=== PATIENT | male | born 1930 | race Two or more races ===

== ENCOUNTER → 2016-12-28 | Outpatient (CLI) | payer MEDICARE, MEDICAID ==
[~2016-12-28] MED LIST: ASPI-498 PO; ATOR10TA52 PO; BAC09TP TOP; CARV6.2551 PO; DOCU100C8 PO; DONE10TA37 PO; FINA5TAB4 PO; FURO40TA PO; FUROSEMIDE 40 MG/4 ML VIAL IV ONE; FUROSEMIDE 40 MG/4 ML VIAL ONE; GABA-497 PO; GLIP-115 PO; KETO1DRO OP; LOSA50TA6 PO; OXYB15TA12 PO; PANT1INJ3 PO; POTA8TAB2 PO; POTASSIUM CHL 10 Meq TABLET PO ONE; POTASSIUM CHL 20 Meq TABLET PO ONE; TRAM100T37 PO; TRIA0.1C5 EX
[2016-12-28 15:15] VITALS: BP 200/86
[2016-12-28 16:09] VITALS: BP 185/81
== END | disposition home or self-care (01) ==
LOC: CHF HDHVI 15:21
PROVIDERS: ATTEND Internal Medicine Cardiovascular Disease
DX: I11.0 Hypertensive heart disease with heart failure (principal); I50.9 Heart failure, unspecified
CPT/HCPCS: 96374; G0463; J1940

== ENCOUNTER → 2017-01-04 | Outpatient (CLI) | payer MEDICARE, MEDICAID ==
[~2017-01-04] MED LIST changes: -FUROSEMIDE 40 MG/4 ML VIAL IV ONE; -FUROSEMIDE 40 MG/4 ML VIAL ONE; -POTASSIUM CHL 10 Meq TABLET PO ONE; -POTASSIUM CHL 20 Meq TABLET PO ONE
== END | disposition home or self-care (01) ==
LOC: Rad HDHVI 14:31
PROVIDERS: ATTEND Internal Medicine Cardiovascular Disease
DX: I25.5 Ischemic cardiomyopathy (principal); I73.9 Peripheral vascular disease, unspecified
CPT/HCPCS: 93306; 93880; 93926

== ENCOUNTER → 2017-01-11 | Outpatient (CLI) | payer MEDICARE, MEDICAID ==
[~2017-01-11] MED LIST changes: +IOHEXOL 350 MG/ML 100ML IJ ONE
[2017-01-11 11:20] VITALS: BP 140/52
[2017-01-11 13:04] VITALS: BP 183/78
[2017-01-11 13:05] VITALS: BP 202/62
== END | disposition home or self-care (01) ==
LOC: Rad HDHVI 11:23
PROVIDERS: ATTEND Internal Medicine Cardiovascular Disease
DX: I67.82 Cerebral ischemia (principal); G93.89 Other specified disorders of brain; J32.8 Other chronic sinusitis; Z86.73 Personal history of transient ischemic attack (TIA), and cerebral infarction without residual deficits
CPT/HCPCS: 70470; 82565; 96374; G0463; Q9967

== ENCOUNTER → 2017-01-19 | Outpatient (CLI) | payer MEDICARE, MEDICAID ==
[~2017-01-19] VITALS: Ht 157.5 cm; Wt 59.0 kg
[~2017-01-19] MED LIST changes: +ADENOSINE 50 MG in GIVE UN-DILUTED 0 ML IV ONE; +ADENOSINE 90 MG/30 ML INJ IV ONE; -IOHEXOL 350 MG/ML 100ML IJ ONE
== END | disposition home or self-care (01) ==
LOC: Rad HDHVI 09:47
PROVIDERS: ATTEND Internal Medicine Cardiovascular Disease
DX: I11.0 Hypertensive heart disease with heart failure (principal); I50.23 Acute on chronic systolic (congestive) heart failure; I73.9 Peripheral vascular disease, unspecified; E78.5 Hyperlipidemia, unspecified
CPT/HCPCS: 78452; 93005; 96374; 96375; A9500; J0153

== ENCOUNTER → 2017-01-25 | Outpatient (CLI) | payer MEDICARE, MEDICAID ==
[~2017-01-25] MED LIST changes: -ADENOSINE 50 MG in GIVE UN-DILUTED 0 ML IV ONE; -ADENOSINE 90 MG/30 ML INJ IV ONE; +FURO20TA3 PO; +HAL5T PO; +LOSA25TA9 PO; +NAPR-223 PO; +POTA10TA34 PO
[2017-01-25 10:20] VITALS: BP 123/55
[2017-01-25 10:45] VITALS: BP 122/55
[2017-01-25 12:33] LABS: Basophils # (auto) 0 uL; Basophils % (auto) 0.6 % (0.0-2.0); Eosinophils # (auto) 0.5 uL; Eosinophils % (auto) 7.3 % (0.0-7.0); Hematocrit 36.5 % (41.0-53.0); Hemoglobin 11.8 g/dL (13.5-17.5); Mean Corpuscular Hemoglobin 27.1 pg (28.0-32.0); Mean Corpuscular Hgb Conc. 32.4 g/dL (32.0-36.0); Mean Corpuscular Volume 83.7 fL (80.0-100.0); Mean Platelet Volume 8.6 fL (6.9-10.8); Monocytes # (auto) 0.6 uL; Monocytes % (auto) 8.8 % (0.0-12.0); Neutrophils # (auto) 4.9 uL; Neutrophils % (auto) 69.3 % (37.0-80.0); Platelet Count (auto) 182 10^3/uL (140-450); Red Cell Distribution Width 17.1 % (11.8-14.3); White Blood Cell 7.1 10^3/uL (4.4-10.8)
[2017-01-25 12:41] LABS: INR 0.94 (0.9-1.15); Prothrombin Time 10.2 sec (9.37-12.3)
[2017-01-25 13:04] LABS: BUN/Creatinine Ratio 25.6; Calcium 8.6 mg/dL (8.5-10.1); Potassium 4.4 mmol/L (3.5-5.1)
== END | disposition home or self-care (01) ==
LOC: Rad HDHVI 09:59
PROVIDERS: ATTEND Internal Medicine Cardiovascular Disease
DX: Z01.818 Encounter for other preprocedural examination (principal); I70.0 Atherosclerosis of aorta; I10 Essential (primary) hypertension; D64.9 Anemia, unspecified; R79.1 Abnormal coagulation profile
CPT/HCPCS: 36415; 71020; 80048; 85025; 85610; 85730; 93005; G0463

== ENCOUNTER 2017-01-31 10:06 | Day surgery (SDC) | payer MEDICARE, MEDICAID ==
[~2017-01-31 10:06] MED LIST changes: -ATOR10TA52 PO; -BAC09TP TOP; -FURO40TA PO; -LOSA50TA6 PO; -OXYB15TA12 PO; -PANT1INJ3 PO; -POTA8TAB2 PO; -TRAM100T37 PO
[2017-01-31] MEDS ORDERED: IOHEXOL 350 MG/ML 100ML IJ ONE (12:47)
[2017-01-31] MEDS ORDERED: LIDOCAINE 2%HCL (LOCAL ANESTH.) INJ 20ML MDV ONE (12:47)
[2017-01-31] MEDS ORDERED: methylPREDNISolone SOD SUCC 125 MG/2 ML VL ONE (13:00)
[2017-01-31] MEDS ORDERED: ANGIOMAX 250 MG VIAL IV ONE (13:00)
[2017-01-31] MEDS ORDERED: diphenhdrAMINE HCL 50 MG/1 ML VL ONE (13:01)
[2017-01-31] MEDS ORDERED: SODIUM CHL 0.9% 50 ML ONE (13:01)
[2017-01-31] MEDS ORDERED: MIDAZOLAM HCL 1MG/1ML-2 ML VIAL ONE (13:01)
[2017-01-31] MEDS ORDERED: fentaNYL CITRATE 100 MCG/2 ML VL ONE (13:01)
[2017-01-31] MEDS ORDERED: cloNIDine HCL 0.1 MG TAB ONE (16:04)
[2017-01-31] MEDS ORDERED: cloNIDine HCL 0.1 MG TAB PO ONE (16:15)
== END 2017-01-31 17:50 | disposition home or self-care (01) ==
LOC: CATH 10:06
PROVIDERS: ATTEND Internal Medicine Cardiovascular Disease
DX: I73.9 Peripheral vascular disease, unspecified (principal); I10 Essential (primary) hypertension; E78.5 Hyperlipidemia, unspecified; Z88.0 Allergy status to penicillin; Z91.040 Latex allergy status; Z91.013 Allergy to seafood; K21.9 Gastro-esophageal reflux disease without esophagitis; E11.9 Type 2 diabetes mellitus without complications; I50.9 Heart failure, unspecified; N40.0 Benign prostatic hyperplasia without lower urinary tract symptoms; G30.9 Alzheimer's disease, unspecified
CPT/HCPCS: 36247; C1760; C1769; C1887; C1894; J0583; J1200; J1644; J2250; J2930; J3010; J7030; Q9967; 99152

== ENCOUNTER 2017-02-03 11:49 | Emergency (ER) | payer MEDICARE, MEDICAID ==
[~2017-02-03] VITALS: Ht 157.5 cm; Wt 59.0 kg
[2017-02-03 12:21] VITALS: BP 140/65
[2017-02-03 12:28] LABS: Basophils # (auto) 0 uL; Basophils % (auto) 0.7 % (0.0-2.0); Eosinophils # (auto) 0.6 uL; Eosinophils % (auto) 8.7 % (0.0-7.0); Hematocrit 34.8 % (41.0-53.0); Hemoglobin 11.3 g/dL (13.5-17.5); Lymphocytes # (auto) 0.7 uL; Lymphocytes % (auto) 9.8 % (10.0-50.0); Mean Corpuscular Hemoglobin 27.1 pg (28.0-32.0); Mean Corpuscular Hgb Conc. 32.6 g/dL (32.0-36.0); Mean Corpuscular Volume 83.3 fL (80.0-100.0); Mean Platelet Volume 7.7 fL (6.9-10.8); Monocytes % (auto) 13.5 % (0.0-12.0); Neutrophils # (auto) 4.9 uL; Neutrophils % (auto) 67.3 % (37.0-80.0); Platelet Count (auto) 194 10^3/uL (140-450); Red Cell Distribution Width 16.5 % (11.8-14.3); White Blood Cell 7.3 10^3/uL (4.4-10.8)
[2017-02-03 12:41] LABS: INR 0.96 (0.9-1.15); Partial Thromboplastin Time 23.6 sec (22.64-33.71); Prothrombin Time 10.5 sec (9.37-12.3)
[2017-02-03] MEDS ORDERED: ASPirin 81 mg TAB PO ONE (12:45)
[2017-02-03 13:00] LABS: Albumin 3.4 g/dL (3.4-5.0); BUN/Creatinine Ratio 17.7; Bilirubin, Total 0.3 mg/dL (0.2-1.0); Calcium 8.3 mg/dL (8.5-10.1); Magnesium 2.1 mg/dL (1.6-2.6); Potassium 4.4 mmol/L (3.5-5.1); Total Protein 7.4 g/dL (6.4-8.2)
[2017-02-03 13:16] LABS: B-Type Natriuretic Peptide 275.23 pg/mL (0-100)
[2017-02-03 13:53] LABS: Temperature: 23.1 C (20.0-25.0)
== END 2017-02-03 15:16 | disposition home or self-care (01) ==
LOC: ER 11:49 → EDBD 11:49 → ER 15:16
DX: G45.9 Transient cerebral ischemic attack, unspecified (principal); G93.41 Metabolic encephalopathy; E11.9 Type 2 diabetes mellitus without complications; I11.0 Hypertensive heart disease with heart failure; I50.9 Heart failure, unspecified
CPT/HCPCS: 36415; 70450; 71010; 80053; 83735; 83880; 84484; 85025; 85610; 85730; 93005; 99291

== ENCOUNTER → 2017-02-20 | Outpatient (CLI) | payer MEDICARE, MEDICAID ==
[~2017-02-20] MED LIST changes: +TRIA0.1C4 EX; -TRIA0.1C5 EX
[2017-02-20 14:05] VITALS: BP 140/48
[2017-02-20 14:35] VITALS: BP 120/72
[2017-02-20 16:22] LABS: Basophils # (auto) 0.1 uL; Eosinophils # (auto) 0.6 uL; Eosinophils % (auto) 10.3 % (0.0-7.0); Hematocrit 34.8 % (41.0-53.0); Hemoglobin 11.6 g/dL (13.5-17.5); Lymphocytes % (auto) 17.6 % (10.0-50.0); Mean Corpuscular Hemoglobin 27.9 pg (28.0-32.0); Mean Corpuscular Hgb Conc. 33.2 g/dL (32.0-36.0); Mean Platelet Volume 8.3 fL (6.9-10.8); Monocytes # (auto) 0.6 uL; Monocytes % (auto) 11.2 % (0.0-12.0); Neutrophils # (auto) 3.4 uL; Neutrophils % (auto) 59.9 % (37.0-80.0); Nucleated Red Blood Cells % 0.2 %; Platelet Count (auto) 199 10^3/uL (140-450); Red Cell Distribution Width 15.6 % (11.8-14.3); White Blood Cell 5.7 10^3/uL (4.4-10.8)
[2017-02-20 16:23] LABS: BUN/Creatinine Ratio 19.1; Calcium 8.6 mg/dL (8.5-10.1); Potassium 4.6 mmol/L (3.5-5.1)
[2017-02-20 16:37] LABS: INR 0.96 (0.9-1.15); Prothrombin Time 10.5 sec (9.37-12.3)
== END | disposition home or self-care (01) ==
LOC: Rad HDHVI 13:53
PROVIDERS: ATTEND Internal Medicine Cardiovascular Disease
DX: Z01.818 Encounter for other preprocedural examination (principal); I70.0 Atherosclerosis of aorta; I51.7 Cardiomegaly; I10 Essential (primary) hypertension; R91.8 Other nonspecific abnormal finding of lung field; D64.9 Anemia, unspecified; R79.1 Abnormal coagulation profile; E78.00 Pure hypercholesterolemia, unspecified; G45.9 Transient cerebral ischemic attack, unspecified
CPT/HCPCS: 36415; 80048; 85025; 85610; 85730; 93005; G0463; 71020

== ENCOUNTER 2017-03-05 04:33 | Emergency (ER) | payer MEDICARE, MEDICAID ==
[~2017-03-05] VITALS: Ht 157.5 cm; Wt 57.6 kg
[~2017-03-05 04:33] MED LIST changes: -DONE10TA37 PO; +DONE10TA40 PO; -FURO20TA3 PO; -GABA-497 PO; -HAL5T PO; -POTA10TA34 PO
[2017-03-05 08:02] VITALS: BP 187/78
== END 2017-03-05 09:49 | disposition home or self-care (01) ==
LOC: ER 04:39
DX: S01.01XA Laceration without foreign body of scalp, initial encounter (principal); S09.90XA Unspecified injury of head, initial encounter; E11.9 Type 2 diabetes mellitus without complications; F02.80 Dementia in other diseases classified elsewhere, unspecified severity, without behavioral disturbance, psychotic disturbance, mood disturbance, and anxiety; G30.9 Alzheimer's disease, unspecified; I10 Essential (primary) hypertension; Z88.1 Allergy status to other antibiotic agents; Z91.040 Latex allergy status; W22.8XXA Striking against or struck by other objects, initial encounter; Y93.89 Activity, other specified; Y92.009 Unspecified place in unspecified non-institutional (private) residence as the place of occurrence of the external cause; Y99.8 Other external cause status
CPT/HCPCS: 70450

== ENCOUNTER → 2017-03-14 | Outpatient (CLI) | payer MEDICARE, MEDICAID | END | disposition home or self-care (01) | LOC: Rad HDHVI 09:58 | PROVIDERS: ATTEND Internal Medicine Cardiovascular Disease | DX: I73.9 Peripheral vascular disease, unspecified (principal) | CPT/HCPCS: 93926 ==

== ENCOUNTER → 2017-06-16 | Outpatient (CLI) | payer MEDICARE, MEDICAID ==
[~2017-06-16] MED LIST changes: +FUROSEMIDE 40 MG/4 ML VIAL IV ONE; +FUROSEMIDE 40 MG/4 ML VIAL ONE; +READI-CAT 2 (BARIUM SULF)(VANILLA SMOOTHIE) 450ML ONE; +SODIUM CHLORIDE 0.9% 1,000 ML IV SCH
[2017-06-16 10:25] VITALS: BP 150/72
[2017-06-16 11:18] LABS: Hemoglobin 9.4 g/dL (13.5-17.5)
[2017-06-16 11:20] LABS: Hematocrit 29.6 % (41.0-53.0); Mean Corpuscular Hemoglobin 26.2 pg (28.0-32.0); Mean Corpuscular Hgb Conc. 31.6 g/dL (32.0-36.0); Platelet Count (auto) 387 10^3/uL (140-450); Red Blood Cells 3.56 10^6/uL (4.5-5.90); Red Cell Distribution Width 16.7 % (11.8-14.3); White Blood Cell 12.7 10^3/uL (4.4-10.8)
[2017-06-16 11:26] LABS: BUN/Creatinine Ratio 17.7; Calcium 8.4 mg/dL (8.5-10.1); Potassium 4.6 mmol/L (3.5-5.1)
[2017-06-16 11:29] LABS: Basophils % (manual) 0 (0.0-2.0); Blast Cells 0; Eosinophils % (manual) 0 (0-7); Metamyelocytes % 0; Myelocytes % 0; Promyelocytes % 0; Reactive Lymphocytes 0
[2017-06-16 12:01] LABS: Band Neutrophils % (manual) 3; Lymphocytes % (manual) 6 (10.0-50.0); Monocytes % (manual) 6 (0-12)
[2017-06-16 14:22] VITALS: BP 174/80
== END | disposition home or self-care (01) ==
LOC: CHF HDHVI 10:04
PROVIDERS: ATTEND Internal Medicine Cardiovascular Disease
DX: I11.0 Hypertensive heart disease with heart failure (principal); I50.9 Heart failure, unspecified; K57.30 Diverticulosis of large intestine without perforation or abscess without bleeding; J90 Pleural effusion, not elsewhere classified; K40.90 Unilateral inguinal hernia, without obstruction or gangrene, not specified as recurrent; J98.11 Atelectasis; K82.0 Obstruction of gallbladder; I70.0 Atherosclerosis of aorta; R14.0 Abdominal distension (gaseous); R33.9 Retention of urine, unspecified; R60.9 Edema, unspecified; I25.10 Atherosclerotic heart disease of native coronary artery without angina pectoris; I48.91 Unspecified atrial fibrillation; F03.90 Unspecified dementia, unspecified severity, without behavioral disturbance, psychotic disturbance, mood disturbance, and anxiety; Z85.038 Personal history of other malignant neoplasm of large intestine; Z79.899 Other long term (current) drug therapy; Z89.422 Acquired absence of other left toe(s); Z87.01 Personal history of pneumonia (recurrent)
CPT/HCPCS: 36415; 74176; 80048; 82565; 82962; 85007; 85027; 96361; 96374; G0463; J1940; 96360; 96375

== ENCOUNTER 2017-07-17 14:00 | Emergency (ER) | payer MEDICARE, MEDICAID ==
[~2017-07-17 14:00] MED LIST changes: -FUROSEMIDE 40 MG/4 ML VIAL IV ONE; -FUROSEMIDE 40 MG/4 ML VIAL ONE; -READI-CAT 2 (BARIUM SULF)(VANILLA SMOOTHIE) 450ML ONE; -SODIUM CHLORIDE 0.9% 1,000 ML IV SCH
[2017-07-17 14:57] LABS: Basophils # (auto) 0.1 uL; Basophils % (auto) 1.1 % (0.0-2.0); Eosinophils # (auto) 0.6 uL; Eosinophils % (auto) 9.8 % (0.0-7.0); Hematocrit 35.3 % (41.0-53.0); Hemoglobin 11.3 g/dL (13.5-17.5); Lymphocytes # (auto) 1.5 uL; Lymphocytes % (auto) 26.3 % (10.0-50.0); Mean Corpuscular Hemoglobin 25.1 pg (28.0-32.0); Mean Corpuscular Volume 78.5 fL (80.0-100.0); Monocytes # (auto) 0.8 uL; Monocytes % (auto) 14.3 % (0.0-12.0); Neutrophils # (auto) 2.8 uL; Neutrophils % (auto) 48.5 % (37.0-80.0); Nucleated Red Blood Cells % 0.3 %; Platelet Count (auto) 211 10^3/uL (140-450); Red Cell Distribution Width 18.2 % (11.8-14.3); White Blood Cell 5.9 10^3/uL (4.4-10.8)
[2017-07-17 15:02] LABS: BUN/Creatinine Ratio 20.6; Calcium 8.3 mg/dL (8.5-10.1); Magnesium 2.2 mg/dL (1.6-2.6); Potassium 4.7 mmol/L (3.5-5.1)
[2017-07-17 15:05] LABS: Bilirubin, Total 0.4 mg/dL (0.2-1.0); Total Protein 7.5 g/dL (6.4-8.2)
[2017-07-17 15:09] VITALS: BP 133/97
== END 2017-07-17 16:55 | disposition home or self-care (01) ==
LOC: EDBD 14:00 → ER 14:00
DX: F03.90 Unspecified dementia, unspecified severity, without behavioral disturbance, psychotic disturbance, mood disturbance, and anxiety (principal); E11.9 Type 2 diabetes mellitus without complications; I10 Essential (primary) hypertension; I50.9 Heart failure, unspecified; Z88.1 Allergy status to other antibiotic agents; Z91.040 Latex allergy status; Z91.013 Allergy to seafood
CPT/HCPCS: 36415; 70450; 71045; 80053; 83735; 84484; 85025; 93005; 94761

== ENCOUNTER → 2018-03-20 | Outpatient (CLI) | payer MEDICARE, MEDICAID ==
[~2018-03-20] MED LIST changes: +CLOP75TA41 PO; +LOSA25TA40 PO; -LOSA25TA9 PO; +PANT40TA2 PO
== END | disposition home or self-care (01) ==
LOC: Rad HDHVI 09:56
PROVIDERS: ATTEND Internal Medicine Cardiovascular Disease
DX: I70.8 Atherosclerosis of other arteries (principal); I11.9 Hypertensive heart disease without heart failure; F09 Unspecified mental disorder due to known physiological condition; I73.9 Peripheral vascular disease, unspecified; R00.2 Palpitations
CPT/HCPCS: 93306; 93926

== ENCOUNTER → 2018-08-06 | Outpatient (CLI) | payer MEDICARE, MEDICAID ==
[~2018-08-06] MED LIST changes: +GABA250S2 PO; -GLIP-115 PO; +LEVO500T21 PO; +LOSA25TA38 PO; -LOSA25TA40 PO; +MEMA5TAB2 PO; +METF-371 PO; +OSEL75CA11 PO
[2018-08-06 15:52] LABS: Urine Blood Negative /uL (Negative); Urine Specific Gravity 1.013 (1.001-1.035)
[2018-08-06 15:59] LABS: Eosinophils # (auto) 0.6 uL; Hematocrit 30.5 % (41.0-53.0); Lymphocytes # (auto) 1.1 uL; Lymphocytes % (auto) 18.2 % (10.0-50.0); Nucleated Red Blood Cells % 0.1 %; Platelet Count (auto) 208 10^3/uL (140-450); White Blood Cell 5.8 10^3/uL (4.4-10.8)
[2018-08-06 16:02] LABS: Basophils # (auto) 0 uL; Basophils % (auto) 0.8 % (0.0-2.0); Eosinophils % (auto) 10.6 % (0.0-7.0); Hemoglobin 9.6 g/dL (13.5-17.5); Mean Corpuscular Hemoglobin 25.3 pg (28.0-32.0); Mean Corpuscular Hgb Conc. 31.5 g/dL (32.0-36.0); Mean Corpuscular Volume 80.2 fL (80.0-100.0); Monocytes # (auto) 0.7 uL; Monocytes % (auto) 12.2 % (0.0-12.0); Neutrophils # (auto) 3.4 uL; Neutrophils % (auto) 58.2 % (37.0-80.0); Red Blood Cells 3.81 10^6/uL (4.5-5.90); Red Cell Distribution Width 16.4 % (11.8-14.3)
[2018-08-06 16:04] LABS: Albumin 3.7 g/dL (3.4-5.0); Calcium 8.5 mg/dL (8.5-10.1); Potassium 4.6 mmol/L (3.5-5.1)
[2018-08-06 16:09] LABS: Bilirubin, Total 0.4 mg/dL (0.2-1.0); Total Protein 7.6 g/dL (6.4-8.2)
[2018-08-06 16:16] LABS: Free T4 (Free Thyroxine) 0.96 ng/dL (0.89-1.76); Prostate Specific Antigen 0.16 ng/mL (0.0-4.0)
== END | disposition home or self-care (01) ==
LOC: LAB 11:08
PROVIDERS: ATTEND Internal Medicine Cardiovascular Disease
DX: E11.65 Type 2 diabetes mellitus with hyperglycemia (principal); E03.9 Hypothyroidism, unspecified; E55.9 Vitamin D deficiency, unspecified; E29.1 Testicular hypofunction; C61 Malignant neoplasm of prostate; D51.9 Vitamin B12 deficiency anemia, unspecified; N39.0 Urinary tract infection, site not specified
CPT/HCPCS: 36415; 80053; 80061; 81003; 82306; 82607; 83036; 84153; 84403; 84439; 84443; 85025

== ENCOUNTER → 2018-11-12 | Outpatient (CLI) | payer MEDICARE, MEDICAID ==
[~2018-11-12] MED LIST changes: -DOCU100C8 PO; -LEVO500T21 PO; -LOSA25TA38 PO; -MEMA5TAB2 PO; -METF-371 PO; -OSEL75CA11 PO
== END | disposition home or self-care (01) ==
LOC: Rad HDHVI 10:57
PROVIDERS: ATTEND Internal Medicine Cardiovascular Disease
DX: I70.203 Unspecified atherosclerosis of native arteries of extremities, bilateral legs (principal); R22.40 Localized swelling, mass and lump, unspecified lower limb; R22.9 Localized swelling, mass and lump, unspecified; I11.0 Hypertensive heart disease with heart failure; I50.9 Heart failure, unspecified
CPT/HCPCS: 93926

== ENCOUNTER 2019-01-14 14:21 | Inpatient (IN) | payer MEDICARE, MEDICAID ==
[~2019-01-14] VITALS: Ht 167.6 cm; Wt 58.5 kg
[2019-01-14 16:05] LABS: Urine Bacteria NONE SEEN /hpf (None Seen); Urine Blood Negative /uL (Negative); Urine Hyaline Cast FEW /lpf (0 - 2); Urine Specific Gravity 1.014 (1.001-1.035); Urine WBC 3 /hpf (0 - 3)
[2019-01-14 16:14] LABS: Basophils # (auto) 0.1 uL; Basophils % (auto) 0.9 % (0.0-2.0); Eosinophils # (auto) 0.3 uL; Hematocrit 31.7 % (41.0-53.0); Monocytes # (auto) 0.6 uL; Neutrophils # (auto) 4.7 uL; Neutrophils % (auto) 70.6 % (37.0-80.0)
[2019-01-14 16:16] LABS: Eosinophils % (auto) 4.3 % (0.0-7.0); Hemoglobin 10.1 g/dL (13.5-17.5); Lymphocytes % (auto) 15.5 % (10.0-50.0); Mean Corpuscular Hemoglobin 25.5 pg (28.0-32.0); Mean Corpuscular Hgb Conc. 31.8 g/dL (32.0-36.0); Mean Corpuscular Volume 80.1 fL (80.0-100.0); Monocytes % (auto) 8.7 % (0.0-12.0); Nucleated Red Blood Cells % 0.2 %; Platelet Count (auto) 172 10^3/uL (140-450); Red Blood Cells 3.96 10^6/uL (4.5-5.90); Red Cell Distribution Width 18.8 % (11.8-14.3); White Blood Cell 6.6 10^3/uL (4.4-10.8)
[2019-01-14 16:29] LABS: Albumin 3.5 g/dL (3.4-5.0); Calcium 8.5 mg/dL (8.5-10.1)
[2019-01-14 16:35] LABS: Bilirubin, Total 0.3 mg/dL (0.2-1.0); Total Protein 7.4 g/dL (6.4-8.2)
[2019-01-14] MEDS ORDERED: SODIUM CHLORIDE 0.9% 1,000 ML IV ONE (16:45)
[2019-01-14] MEDS ORDERED: LORazepam 2MG/ML-1ML VIAL ONE (17:10)
[2019-01-14] MEDS ORDERED: LORazepam 2MG/ML-1ML VIAL IV ONE (17:30)
[2019-01-14] MEDS ORDERED: MORPHINE SULF INJ 2 MG/ML SYRINGE 1ML IV PRN (19:15)
[2019-01-14] MEDS ORDERED: NITROGLYCERIN 0.4 MG SL TAB SL PRN (19:15)
[2019-01-14] MEDS ORDERED: DEXTROSE (50%) 50ML SYRG IV PRN (19:15)
[2019-01-14] MEDS: SODIUM CHLORIDE 0.9% 1,000 ML IV SCH (19:33)
[2019-01-14 20:00] VITALS: BP 185/95
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
--- NOTE | 2019-01-14 21:01 | NUR ---
PATIENT HAD AN UNWITNESSED FALL IN THE ROOM OF 277B. I WAS ALERTED HEN THE BED ALARM WENT OFF INITIALLY BUT BEFORE I COULD EVEN GET TO THE ROOM I WAS TOLD BY SALES PROMOTION REPRESENTATIVE THAT THE PATIENT HAD FALLEN. I WENT INTO THE ROOM ALONG WITH SOME OTHER NURSES TO HELP HIM OFF THE FLOOR. HE WAS ABLE TO STAND TO HIS FEET AND GET BACK INTO THE BED. UPON ASSESSING HIM I FOUND HE WAS BLEEDING THROUGH HIS PANTS. PICTURES WERE TAKEN AND DRESSING PLACED OVER IT.
[2019-01-14 21:15] VITALS: BP 173/90
--- NOTE | 2019-01-14 21:30 | NUR ---
CALLED HOSPITALIST AND NOTIFIED HIM THAT PATIENT HAD FALLEN. HE ORDERED TO JUST MONITOR HIM.
[2019-01-14] MEDS: DONEPEZIL HYDROCHLORIDE 5 MG TAB PO SCH (21:51)
[2019-01-14] MEDS: ACCU-CHEK COMFORT CURVE STRIP VI SCH (21:51)
[2019-01-14] MEDS: InsuLIN REG 1unit/0.01ml Soln (100units/ml) SC SCH (21:51)
[2019-01-14 22:00] VITALS: BP 173/90
--- NOTE | 2019-01-15 01:50 | NUR ---
PATIENT PULLED OUT IV.
[2019-01-15 05:00] VITALS: BP 164/79
[2019-01-15] MEDS: ACCU-CHEK COMFORT CURVE STRIP VI SCH ×4 (06:51→22:21)
[2019-01-15] MEDS: InsuLIN REG 1unit/0.01ml Soln (100units/ml) SC SCH ×4 (06:51→22:00)
--- NOTE | 2019-01-15 07:15 | NUR ---
Opening Shift Note Assumed care of patient, awake and alert only to self. No S/S of distress/SOB, no pain noted or reported. Updated on POC and instructed to call for assistance as needed, patient is confused unable to comprehend and needs more reinforcement. Bed locked in lowest position, side rails up x2, call light within reach, bed alarm on. Sitter at bedside for safety. Will continue to monitor for changes Q1hr and PRN.
[2019-01-15] MEDS: SODIUM CHLORIDE 0.9% 1,000 ML IV SCH ×3 (08:45→22:13)
[2019-01-15] MEDS ORDERED: LORazepam 0.5 MG TAB PO ONE (09:00)
[2019-01-15 09:01] VITALS: BP 166/84
[2019-01-15] MEDS: CLOPIDOGREL BISULFATE 75 MG TAB PO SCH (09:23)
[2019-01-15] MEDS: FAMOTIDINE 20 MG TAB PO SCH (09:24)
[2019-01-15] MEDS: FINASTERIDE 5 MG TAB PO SCH (09:24)
[2019-01-15] MEDS: ASPirin-EC 81 mg tab PO SCH (09:24)
--- NOTE | 2019-01-15 11:00 | NUR ---
DAUGHTER AT BEDSIDE STATES PATIENTS PRIMARY CARE IS DR. GARCIA. WILL UPDATE IN THE COMPUTER.
[2019-01-15] MEDS ORDERED: LORA-622 PO (11:07)
[2019-01-15] MEDS ORDERED: MEMA1TAB2 PO (11:07)
[2019-01-15] MEDS ORDERED: FURO40TA4 PO (11:07)
[2019-01-15] MEDS ORDERED: GLIP5TAB12 PO (11:07)
[2019-01-15] MEDS ORDERED: MIRT1TAB38 PO (11:07)
[2019-01-15] MEDS ORDERED: POTA-220 PO (11:07)
[2019-01-15] MEDS ORDERED: ATOR10TA PO (11:07)
[2019-01-15 13:00] VITALS: BP 151/77
--- NOTE | 2019-01-15 16:53 | NUR ---
Spoke with Dr Alcala Patient is becoming increasingly more anxious and trying to get out of bed, received orders for haldol PRN. Will input and follow through.
[2019-01-15 17:00] VITALS: BP 181/87
[2019-01-15] MEDS: HALOPERIDOL LACTATE 5 MG/ML INJ VIAL IM PRN (17:34)
--- NOTE | 2019-01-15 18:49 | NUR ---
Patient Rounds Patient resting in bed watching television with sitter at bedside, no s/s of distress or SOB. Will endorse care to django developer RN.
[2019-01-15 22:00] VITALS: BP 186/96
[2019-01-15] MEDS: DONEPEZIL HYDROCHLORIDE 5 MG TAB PO SCH (22:12)
[2019-01-15] MEDS: LABETALOL HCL 5 MG/ML ML 20ML VIAL IV PRN (22:13)
[2019-01-15 23:20] VITALS: BP 173/86
--- NOTE | 2019-01-15 23:37 | NUR ---
Called/paged Dr. GARCIA called re:notify blood pressure 173/86 after labetalol administration, request to continue home bp medications and request sleeping pill . Waiting for call back. Continue care.
[2019-01-16] MEDS: LABETALOL HCL 5 MG/ML ML 20ML VIAL IV PRN ×2 (01:43→10:01)
[2019-01-16] MEDS: HALOPERIDOL LACTATE 5 MG/ML INJ VIAL IM PRN ×2 (03:20→11:27)
[2019-01-16 05:00] VITALS: BP 143/97
[2019-01-16] MEDS: ACCU-CHEK COMFORT CURVE STRIP VI SCH ×4 (06:46→22:15)
[2019-01-16] MEDS: InsuLIN REG 1unit/0.01ml Soln (100units/ml) SC SCH ×4 (06:47→22:00)
[2019-01-16 09:00] VITALS: BP 156/70
[2019-01-16] MEDS: ASPirin-EC 81 mg tab PO SCH (09:44)
[2019-01-16] MEDS: FINASTERIDE 5 MG TAB PO SCH (09:44)
[2019-01-16] MEDS: FAMOTIDINE 20 MG TAB PO SCH (09:45)
[2019-01-16] MEDS: CLOPIDOGREL BISULFATE 75 MG TAB PO SCH (09:45)
--- NOTE | 2019-01-16 11:00 | NUR ---
WOUND CARE NOTE: IN TO SEE PATIENT AT THIS TIME PER WOUND CARE CONSULT REQUEST. PATIENT ADMITT[facility] TO [facility] WITH DIAGNOSIS OF GENERAL WEAKNESS, HYPOVOLEMIC HYPOTENSION. CURRENT KRISTEL SCORE IS 17. PATIENT HAS SITTER AT BEDSIDE D/T PATIENT CONFUSION. PATIENT RECENTLY FELL, RENDERING HIM WITH SKIN TEARS TO THE RIGHT KNEE AND LEFT ELBOW. BOTH WOUNDS ARE PARTIAL THICKNESS. WOUNDS DRESSED WITH THERAHONEY, OPTIFOAM GENTLE DRESSINGS.NO OTHER WOUNDS NOTED. RECOMMEND: FREQUENT TURN SCHEDULE Q 2 HOURS, PRN CONDITION PERMITS, WITH PRESSURE REDISTRIBUTION USING PILLOWS/WEDGES, BID/PRN APPLICATION WITH MOISTURE BARRIER CREAM, OPTIFOAM GENTLE SACRAL DRESSING PREVENTATIVE, EOD/PRN APPLICATION WITH HONEY, OPTIFOAM GENTLE DRESSINGS TO RIGHT KNEE AND RIGHT ELBOW WOUNDS, SKIN/WOUND CARE PLAN, DIETARY CONSULT, CONTINUED MONITORING BY WOUND CARE TEAM. Addendum: 01/16/19 at 1951 by Maryse Collins RN Amended: Links added.
[2019-01-16] MEDS: SODIUM CHLORIDE 0.9% 1,000 ML IV SCH ×2 (11:24→21:15)
--- NOTE | 2019-01-16 12:59 | NUR ---
WOUND CARE TO PT RIGHT KNEE DONE BY WOUND CARE NURSE.
[2019-01-16 13:00] VITALS: BP 147/78
[2019-01-16 15:22] LABS: Albumin 3.4 g/dL (3.4-5.0); Calcium 8.3 mg/dL (8.5-10.1); Potassium 3.9 mmol/L (3.5-5.1)
[2019-01-16 15:25] LABS: Bilirubin, Total 0.4 mg/dL (0.2-1.0); Total Protein 7.4 g/dL (6.4-8.2)
[2019-01-16 16:18] LABS: Basophils # (auto) 0.1 uL; Basophils % (auto) 0.8 % (0.0-2.0); Eosinophils # (auto) 0.2 uL; Eosinophils % (auto) 2.3 % (0.0-7.0); Hematocrit 32.1 % (41.0-53.0); Hemoglobin 10.1 g/dL (13.5-17.5); Lymphocytes # (auto) 0.9 uL; Lymphocytes % (auto) 11.8 % (10.0-50.0); Mean Corpuscular Hemoglobin 24.9 pg (28.0-32.0); Mean Corpuscular Hgb Conc. 31.4 g/dL (32.0-36.0); Mean Corpuscular Volume 79.3 fL (80.0-100.0); Monocytes # (auto) 0.9 uL; Monocytes % (auto) 11.3 % (0.0-12.0); Neutrophils # (auto) 5.7 uL; Neutrophils % (auto) 73.8 % (37.0-80.0); Platelet Count (auto) 160 10^3/uL (140-450); Red Blood Cells 4.05 10^6/uL (4.5-5.90); Red Cell Distribution Width 18.4 % (11.8-14.3); White Blood Cell 7.7 10^3/uL (4.4-10.8)
[2019-01-16 17:00] VITALS: BP 153/78
--- NOTE | 2019-01-16 17:28 | NUR ---
PT GOT HIS FECES AND SMEARED IT ALL OVER HIS HANDS AND HIS BED/BEDDING AND TRY TO THROW IT. PT ALSO TRIED TO SPIT ON ME. THE HAND MITTS WERE PLACED ON THE PT TO AVOID HIM FROM GETTING HIS FECES AND THROWING IT.
--- NOTE | 2019-01-16 17:41 | NUR ---
PT HAD LARGE BROWN BM AND THREW A PORTION OF IT ACROSS BED. PT CLEANED, BEDDING CHANGED. SITTER AT BEDSIDE, WILL CONTINUE TO MONITOR. Addendum: 01/16/19 at 1900 by SARKIS GUTIERREZ RN MITTENS PLACED ON PATIENT.
--- NOTE | 2019-01-16 18:12 | NUR ---
PT IV INFILTRATED. IV DC'D AND PRESSURE DRESSING APPLIED. NEW IV ATTEMPTED TWICE USING STERILE TECHNIQUE, UNSUCCESSFUL. PT SLEPT DURING PROCEDURE. DHARA WILLOUGHBY PLACED 22 GAUGE RFA.
--- NOTE | 2019-01-16 19:30 | NUR ---
Opening Shift Note Assumed care of patient, awake and confused. No S/S of distress/SOB or pain. Patient only speaks Romansh. Sitter at bedside. Will continue to monitor for changes Q1hr and PRN.
[2019-01-16 22:00] VITALS: BP 176/84
[2019-01-16] MEDS: DONEPEZIL HYDROCHLORIDE 5 MG TAB PO SCH (22:16)
[2019-01-17 05:00] VITALS: BP 127/59
[2019-01-17] MEDS: InsuLIN REG 1unit/0.01ml Soln (100units/ml) SC SCH ×4 (06:20→22:00)
[2019-01-17] MEDS: ACCU-CHEK COMFORT CURVE STRIP VI SCH ×4 (06:20→22:00)
--- NOTE | 2019-01-17 07:30 | NUR ---
tOpening Shift Note Assumed care of patient, awake and alert with confusion. No S/S of distress/SOB or pain. Skin is warm and dry to touch, no s/s of hyperglycemia or hypoglycemia noted. Provide a sitter at bedside, no any injuries noted. Instructed on POC and to call for assist PRN, will continue to monitor for changes Q1hr and PRN.
[2019-01-17 09:00] VITALS: BP 142/60
[2019-01-17] MEDS: ASPirin-EC 81 mg tab PO SCH (09:03)
[2019-01-17] MEDS: CLOPIDOGREL BISULFATE 75 MG TAB PO SCH (09:03)
[2019-01-17] MEDS: FAMOTIDINE 20 MG TAB PO SCH (09:03)
[2019-01-17] MEDS: FINASTERIDE 5 MG TAB PO SCH (09:04)
[2019-01-17] MEDS: SODIUM CHLORIDE 0.9% 1,000 ML IV SCH ×2 (09:04→17:15)
[2019-01-17 13:00] VITALS: BP 177/86
--- NOTE | 2019-01-17 16:04 | NUR ---
assessment Patient is a 88 year old male. Per patients daughter Carleen Camarena prior to admission patient lived home with her and functioned with assistance. Per Carleen patient has a wheelchair and fww for home use. Per Carleen patient needs a new fww on discharge. Per Carleen patients PCP is Dr Alcala. Per Carleen patient is on service with [facility]. Patient will need a resumption of care on discharge. Carleen is patients [facility] caregiver. Carleen informed me patients new neurologist put patient on new medication and he is easier to care for now. I informed Carleen she has a right to speak to a social problems specialist regarding all care. I informed Carleen she has a right to participate in any and all discharge planning. Carleen is aware of visiting hours on the hospital floor. I informed Carleen she has a right to privacy. Patient has a POA and advanced directive. Carleen verbalized understanding and agreed to discharge plan home with home health. Addendum: 01/17/19 at 1606 by Mandi PURI Amended: Links added.
[2019-01-17 17:47] VITALS: BP 177/86
[2019-01-17] MEDS: LABETALOL HCL 5 MG/ML ML 20ML VIAL IV PRN (17:59)
--- NOTE | 2019-01-17 19:30 | NUR ---
Opening Shift Note Assumed care of patient, awake but confused. No S/S of distress/SOB or pain. Sitter at bedside. Will continue to monitor for changes Q1hr and PRN.
[2019-01-17] MEDS: DONEPEZIL HYDROCHLORIDE 5 MG TAB PO SCH (22:43)
--- NOTE | 2019-01-17 22:44 | NUR ---
Patient able to take medication crushed with apple sauce. Patient offered jello and patient able to eat with moderate assistance. Patient oriented to surrounding, but still attempting to get out of bed. Sitter at bedside.
[2019-01-18] MEDS: LABETALOL HCL 5 MG/ML ML 20ML VIAL IV PRN ×2 (00:26→09:27)
--- NOTE | 2019-01-18 00:30 | NUR ---
Administered Labetolol PRN due to elevated BP 188/81. Stopped IV fluids earlier at 1999. Patient states that he is not in any pain. Will continue to monitor.
--- NOTE | 2019-01-18 01:37 | NUR ---
BP is still elevated on recheck. Now 196/90 and HR 76. Patient is calm and states that he is not in pain. Will page hospitalist.
[2019-01-18] MEDS: SODIUM CHLORIDE 0.9% 1,000 ML IV SCH ×2 (03:15→13:15)
--- NOTE | 2019-01-18 04:45 | NUR ---
Upon recheck, BP is now 141/78. Patient resting. Will continue to monitor.
[2019-01-18 05:59] VITALS: BP 141/60
[2019-01-18] MEDS: InsuLIN REG 1unit/0.01ml Soln (100units/ml) SC SCH ×3 (06:15→17:52)
[2019-01-18] MEDS: ACCU-CHEK COMFORT CURVE STRIP VI SCH ×3 (06:15→17:00)
--- NOTE | 2019-01-18 07:30 | NUR ---
Opening Shift Note Assumed care of patient, awake and alert with confusion. No S/S of distress/SOB or pain. Skin is warm and dry to touch, no s/s of hyperglycemia or hypoglycemia noted. Instructed on POC and to call for assist PRN, will continue to monitor for changes Q1hr and PRN.
--- NOTE | 2019-01-18 08:29 | NUR ---
Dr. Alcala paged regarding plan of care, awaiting to call back.
[2019-01-18 09:00] VITALS: BP 122/59
[2019-01-18] MEDS: FAMOTIDINE 20 MG TAB PO SCH (09:08)
[2019-01-18] MEDS: FINASTERIDE 5 MG TAB PO SCH (09:08)
[2019-01-18] MEDS: CLOPIDOGREL BISULFATE 75 MG TAB PO SCH (09:08)
[2019-01-18] MEDS: ASPirin-EC 81 mg tab PO SCH (09:08)
--- NOTE | 2019-01-18 09:25 | NUR ---
Per doctor Fredrick , patient can go home with HH today, noted and carried it out.
[2019-01-18 13:00] VITALS: BP 127/64
--- NOTE | 2019-01-18 13:35 | NUR ---
Per Soy (JAXSON) walker will be delivered at bedside , no ETA yet.
[2019-01-18 14:06] VITALS: BP 127/64
--- NOTE | 2019-01-18 15:45 | NUR ---
D/C Planning Per consult for rufus. Contact Ledy Ph:) Fax:) faxed medical records. Per Anya order has been received and walker to be deliver to bedside between 15:00-17:00. Informed RN Maye. Addendum: 01/18/19 at 1546 by LORNA WEBB Amended: Links added.
[2019-01-18 17:00] VITALS: BP 141/79
--- NOTE | 2019-01-18 18:11 | NUR ---
Discharge instructions given as ordered. Encourage to follow up with (Follow up with Dr. Alcala in 1-2 weeks #[phone] [address] [facility] [address]. Follow up with [facility] )as instructed. All questions and concerns addressed. Patient verbalized understanding. Medication reconciliation form completed and copy given to patient. IV removed with catheter intact, pressure dressing applied. Telemetry unit returned to ICU. Patient taken to vehicle via wheelchair with all personal belongings, accompanied by staff and family member. No distress noted at time of departure.
--- NOTE | 2019-01-18 18:11 | NUR ---
Walker at bedside.
== END 2019-01-18 18:15 | disposition home health service (06) | DRG 70 ==
LOC: EDBD 14:21 → ER 14:27 → TELE 14:28 → TELE-WESTW 20:09
PROVIDERS: ADMIT Nurse Practitioner Acute Care; ATTEND Internal Medicine Cardiovascular Disease
DX: G93.41 Metabolic encephalopathy (principal); N17.0 Acute kidney failure with tubular necrosis; I13.0 Hypertensive heart and chronic kidney disease with heart failure and stage 1 through stage 4 chronic kidney disease, or unspecified chronic kidney disease; E86.1 Hypovolemia; E86.0 Dehydration; I50.9 Heart failure, unspecified; N18.3 Chronic kidney disease, stage 3 (moderate); D64.9 Anemia, unspecified; N40.0 Benign prostatic hyperplasia without lower urinary tract symptoms; E11.22 Type 2 diabetes mellitus with diabetic chronic kidney disease; E78.00 Pure hypercholesterolemia, unspecified; I25.10 Atherosclerotic heart disease of native coronary artery without angina pectoris; E86.9 Volume depletion, unspecified; E78.5 Hyperlipidemia, unspecified; G30.9 Alzheimer's disease, unspecified; G62.9 Polyneuropathy, unspecified; F32.9 Major depressive disorder, single episode, unspecified; F02.80 Dementia in other diseases classified elsewhere, unspecified severity, without behavioral disturbance, psychotic disturbance, mood disturbance, and anxiety; G89.29 Other chronic pain; I95.1 Orthostatic hypotension; Z79.02 Long term (current) use of antithrombotics/antiplatelets; Z79.899 Other long term (current) drug therapy; I25.2 Old myocardial infarction; Z87.01 Personal history of pneumonia (recurrent); Z95.5 Presence of coronary angioplasty implant and graft; Z80.0 Family history of malignant neoplasm of digestive organs; Z79.84 Long term (current) use of oral hypoglycemic drugs; Z82.49 Family history of ischemic heart disease and other diseases of the circulatory system; Z86.74 Personal history of sudden cardiac arrest; Z83.3 Family history of diabetes mellitus; Z91.040 Latex allergy status; Z91.013 Allergy to seafood; Z88.8 Allergy status to other drugs, medicaments and biological substances; Z91.018 Allergy to other foods
CPT/HCPCS: 36415; 71045; 80053; 81001; 82962; 84484; 85025; 93005; G0378; J1815

== ENCOUNTER → 2019-05-10 | Outpatient (CLI) | payer MEDICARE, MEDICAID ==
[~2019-05-10] MED LIST changes: -ASPI-498 PO; +ATOR10TA PO; -DONE10TA40 PO; -GABA250S2 PO; +GLIP5TAB12 PO; -KETO1DRO OP; +MEMA1TAB5 PO; +MIRT1TAB38 PO; -NAPR-223 PO; -PANT40TA2 PO; -TRIA0.1C4 EX
[2019-05-10 11:50] LABS: Basophils # (auto) 0.1 10 ^3/uL (0-0.2); Eosinophils # (auto) 0.3 10 ^3/uL (0-0.8); Hemoglobin 9.5 g/dL (13.5-17.5); Lymphocytes # (auto) 1.1 10 ^3/uL (0.4-5.4); Red Blood Cells 4.21 10^6/uL (4.5-5.90)
[2019-05-10 11:55] LABS: Basophils % (auto) 1.4 % (0.0-2.0); Eosinophils % (auto) 4.8 % (0.0-7.0); Hematocrit 30.9 % (41.0-53.0); Lymphocytes % (auto) 17.8 % (10.0-50.0); Mean Corpuscular Hemoglobin 22.5 pg (28.0-32.0); Mean Corpuscular Hgb Conc. 30.7 g/dL (32.0-36.0); Mean Corpuscular Volume 73.3 fL (80.0-100.0); Monocytes # (auto) 0.7 10 ^3/uL (0-1.3); Monocytes % (auto) 11.1 % (0.0-12.0); Neutrophils # (auto) 4.1 10 ^3/uL (1.6-8.6); Neutrophils % (auto) 64.9 % (37.0-80.0); Nucleated Red Blood Cells % 0.1 %; Platelet Count (auto) 155 10^3/uL (140-450); White Blood Cell 6.3 10^3/uL (4.4-10.8)
[2019-05-10 11:57] LABS: Red Cell Distribution Width 24.1 % (11.8-14.3)
== END | disposition home or self-care (01) ==
LOC: LAB 10:00
PROVIDERS: ATTEND Internal Medicine Cardiovascular Disease
DX: D64.9 Anemia, unspecified (principal)
CPT/HCPCS: 36415; 85025

== ENCOUNTER → 2019-07-12 | Outpatient (CLI) | payer MEDICARE, MEDICAID ==
[~2019-07-12] MED LIST changes: +FUROSEMIDE 100 MG/10ML VIAL IV ONE; +FUROSEMIDE INJECTION 10 ML ONE; +POTASSIUM EFFERVESENT TAB 25 MEQ ONE
[2019-07-12 10:20] VITALS: BP 115/44
--- NOTE | 2019-07-12 10:20 | NUR ---
PATIENT SENT FROM MD SIDE WITH ORDERS ENTERED.
[2019-07-12 11:49] VITALS: BP 108/53
--- NOTE | 2019-07-12 11:49 | NUR ---
[facility] CLINIC Discharge Instructions See e-MAR for any mediations given with this visit. Patient education given on disease process. Patient verbalized understanding. Previous labs reviewed. Patient discharged in stable condition with after care instructions and follow up appointment. NOTE LASIX IVP ADMIN BY VICENTE WILLOUGHBY. LABS DRAWN BY VICENTE WILLOUGHBY.
[2019-07-12 15:57] LABS: BUN/Creatinine Ratio 33.3; Calcium 8.1 mg/dL (8.5-10.1); Potassium 4.1 mmol/L (3.5-5.1)
--- NOTE | 2019-07-12 16:00 | NUR ---
BS RESULTS CALLED INTO CLINIC FROM LAB, CALLED PATIENT AND DAUGHTER STATED SHE CHECKED PT BS AFTER HE ATE AND BS 98.
== END | disposition home or self-care (01) ==
LOC: CHF HDHVI 10:21
PROVIDERS: ATTEND Internal Medicine Cardiovascular Disease
DX: I10 Essential (primary) hypertension (principal); R42 Dizziness and giddiness
CPT/HCPCS: 36415; 80048; 96374; G0463; J1940

== ENCOUNTER → 2019-07-22 | Outpatient (CLI) | payer MEDICARE, MEDICAID ==
[~2019-07-22] MED LIST changes: -FUROSEMIDE 100 MG/10ML VIAL IV ONE; -FUROSEMIDE INJECTION 10 ML ONE; -POTASSIUM EFFERVESENT TAB 25 MEQ ONE
== END | disposition home or self-care (01) ==
LOC: Rad HDHVI 12:38
PROVIDERS: ATTEND Internal Medicine Cardiovascular Disease
DX: I67.2 Cerebral atherosclerosis (principal); M19.011 Primary osteoarthritis, right shoulder; S42.411D Displaced simple supracondylar fracture without intercondylar fracture of right humerus, subsequent encounter for fracture with routine healing; X58.XXXD Exposure to other specified factors, subsequent encounter
CPT/HCPCS: 70450; 73030; 73070

== ENCOUNTER 2019-09-07 14:14 | Inpatient (IN) | payer MEDICARE, MEDICAID ==
[~2019-09-07] VITALS: Ht 167.6 cm; Wt 51.9 kg
[2019-09-07] MEDS ORDERED: SODIUM CHLORIDE 0.9% 1,000 ML IV ONE (16:44)
[2019-09-07] MEDS ORDERED: SODIUM CHLORIDE 0.9% 500 ML IVB ONE (16:44)
[2019-09-07 17:30] LABS: Hematocrit 25.9 % (41.0-53.0); Hemoglobin 7.7 g/dL (13.5-17.5); Mean Corpuscular Hemoglobin 19.5 pg (28.0-32.0); Mean Corpuscular Hgb Conc. 29.6 g/dL (32.0-36.0); Mean Corpuscular Volume 65.7 fL (80.0-100.0); Platelet Count (auto) 255 10^3/uL (140-450); Red Blood Cells 3.95 10^6/uL (4.5-5.90); White Blood Cell 7.5 10^3/uL (4.4-10.8)
[2019-09-07 17:32] LABS: Red Cell Distribution Width 21.3 % (11.8-14.3)
[2019-09-07 17:33] LABS: Blast Cells 0; Myelocytes % 0; Promyelocytes % 0; Reactive Lymphocytes 0
[2019-09-07 17:43] LABS: Albumin 2.7 g/dL (3.4-5.0); Magnesium 2.8 mg/dL (1.6-2.6); Potassium 5.2 mmol/L (3.5-5.1)
[2019-09-07 17:46] LABS: BUN/Creatinine Ratio 22.8; Bilirubin, Total 0.3 mg/dL (0.2-1.0); Total Protein 7.5 g/dL (6.4-8.2)
[2019-09-07 18:07] LABS: Band Neutrophils % (manual) 1; Basophils % (manual) 1 (0.0-2.0); Eosinophils % (manual) 14 (0-7); Lymphocytes % (manual) 7 (10.0-50.0); Metamyelocytes % 1; Monocytes % (manual) 7 (0-12)
[2019-09-07] MEDS ORDERED: LORazepam 2MG/ML-1ML VIAL ONE (19:05)
[2019-09-07] MEDS ORDERED: LORazepam 2MG/ML-1ML VIAL IV ONE (19:15)
[2019-09-07] MEDS ORDERED: ONDANSETRON HCL 4 MG/2 ML VIAL IV PRN (21:30)
[2019-09-07] MEDS ORDERED: DOCUSATE SOD 100 MG CAP PO PRN (21:30)
[2019-09-07] MEDS: SODIUM CHLORIDE 0.9% 1,000 ML IV SCH (22:13)
--- NOTE | 2019-09-08 07:25 | NUR ---
MS admit from ER ELLEN HUBBARD admitted to tele/MS after SBAR received. Patient oriented to ALEXI MILLIGAN RN primary RN, unit, room, bed, and unit policies regarding patient care and visiting hours. Patient weighed by bedscale and encouraged to call if they need something. All questions and concerns addressed, patient verbalized understanding.
--- NOTE | 2019-09-08 07:36 | NUR ---
RECEIVED REPORT FROM ER NURSE.
[2019-09-08 07:38] LABS: Hematocrit 30.7 % (41.0-53.0); Hemoglobin 9.3 g/dL (13.5-17.5); Mean Corpuscular Hemoglobin 19.2 pg (28.0-32.0); Mean Corpuscular Hgb Conc. 30.1 g/dL (32.0-36.0); Mean Corpuscular Volume 63.8 fL (80.0-100.0); Platelet Count (auto) 283 10^3/uL (140-450); Red Blood Cells 4.81 10^6/uL (4.5-5.90); White Blood Cell 10.5 10^3/uL (4.4-10.8)
[2019-09-08 07:39] LABS: Band Neutrophils % (manual) 0; Basophils % (manual) 0 (0.0-2.0); Blast Cells 0; Metamyelocytes % 0; Promyelocytes % 0; Reactive Lymphocytes 0; Red Cell Distribution Width 21.4 % (11.8-14.3)
[2019-09-08 08:06] LABS: Calcium 8.4 mg/dL (8.5-10.1); Potassium 5.5 mmol/L (3.5-5.1)
[2019-09-08 08:09] LABS: BUN/Creatinine Ratio 21.3
[2019-09-08 08:23] VITALS: BP 144/71
--- NOTE | 2019-09-08 08:30 | NUR ---
SITTER AT BEDSIDE.
[2019-09-08 09:47] VITALS: BP 144/71
--- NOTE | 2019-09-08 11:38 | NUR ---
WOUND CARE NOTE: Wound care in to see patient per wound care request regarding "multiple wounds to bilateral lower extremity and feet" that are noted present on admission. Patient is 89 y/o male with admitting diagnosis of Gen Weakness, Severe Protein malnutrition. Patient is resting in bed in Rm. 293A. Patient is awake but not oriented. Patient appears to be in no pain using Delaney Peña Faces Pain Scale, however mild pain noted upon turning. Patient's BLE noted with multiple dry scars, scabs and ecchymosis; more prominent to shins and Rt knee. Dry, black eschar wounds also noted on patient's RT distal foot (1x1cm), Rt heel ((2x1.5cm) R medial ankle (1x0.5cm) and L lateral 5th toe (1x1.2cm)Patient's BLE and feet has dry hyperpigmented skin, no drainage/odor noted, left open to air. Advised bedside nurse to cleansed multiple scabbed /eschar wounds with Betadine and leave open to air per MD order. Patient's R upper medial thigh noted with 3x5cm open partial thickness skin tear, appears to be moisture assoc skin damage. His scrotum and distal penile tip noted with pale pink hypopigmented skin. Sacral and back has intact skin, no pressure injury noted. Cleansed sacral, buttocks and thigh with with soap and water,patted dry and applied Z Guard cream. Covered Rt upper medial thigh wound with Opti foam gentle dressing. Patient's Rt arm has soft cast, hx of fall with reports of broken elbow. Patient tolerated well, nurse aide at bedside. Photograph of mentioned multiple wounds/skin issue are taken for reference. RECOMMENDATION: Nursing to continue with Daily/PRN cleaning of BLE scabbed /eschar wounds with Betadine, BID/PRN cleaning and application of Z Guard cream to sacral, buttocks and thighs per MD order, Dietary consult, frequent turning and repositioning schedule as condition permits, redistribute pressure points with pillows, elevate BLE on pillows, continue monitoring by wound care while patient is hospitalized. Addendum: 09/08/19 at 1541 by Nati Arboleda RN Amended: Links added.
[2019-09-08 12:07] LABS: Lymphocytes % (manual) 7 (10.0-50.0)
[2019-09-08 12:08] LABS: Eosinophils % (manual) 9 (0-7); Monocytes % (manual) 10 (0-12); Myelocytes % 1
--- NOTE | 2019-09-08 12:54 | NUR ---
PATIENT'S DAUGHTER VERONICA CALLED. STATED SHE HAD HIM BROUGHT TO EMERGENCY ROOM "BECAUSE I CAN'T TAKE CARE OF HIM ANYMORE. HE'S TOO HEAVY FOR ME. IT'S TOO MUCH FOR ME."
[2019-09-08 13:05] VITALS: BP 123/71
[2019-09-08] MEDS: SODIUM CHLORIDE 0.9% 1,000 ML IV SCH (14:49)
--- NOTE | 2019-09-08 14:52 | NUR ---
Nutrition Assessment Notes Please refer to link for full assessment notes. Est Energy needs: 6688-9997 kcals (20-23 kcal/kgBW) Est Protein needs: 49-55 gms/day (0.8-0.9 gm/kgBW) Will continue to monitor and reassess prn. Addendum: 09/08/19 at [address] Amended: Links added. Addendum: 09/08/19 at [address] Additional Recommendation Suggest a CCHO 45g diet
[2019-09-08 17:33] VITALS: BP 128/69
--- NOTE | 2019-09-08 19:15 | NUR ---
RECEIVED PATIENT FROM DAY SHIFT RN. PATIENT RESTING IN BED. NO S/S OF DISTRESS NOTED. DENIED PAIN FOR NOW. BIGGS CATH IN PLACE DRAINING TO GRAVITY. DRESSING C/D/I. REORIENTED PATIENT TIME, PLACE, AND SITUATION. NEEDS TO REORIENTED PRN. BED IN LOWEST POSITION WITH SIDE RAILS UP X 2. CALL ROE WITHIN REACH. ALARM ON. SITTER AT BEDSIDE FOR SAFETY. CONTINUE TO MONITOR FOR CHANGES Q1H AND PRN.
[2019-09-08 22:00] VITALS: BP 136/58
--- NOTE | 2019-09-08 23:25 | NUR ---
REPOSITIONED PATIENT TO COMFORT. PATIENT TOLERATED WELL. MITTENS ON. SITTER AT BEDSIDE FOR SAFETY. CONTINUE TO MONITOR.
--- NOTE | 2019-09-09 03:19 | NUR ---
PATIENT SLEEPING. NO S/S OF DISTRESS NOTED. SITTER AT BEDSIDE. CONTINUE TO MONITOR.
[2019-09-09 05:33] VITALS: BP 112/44
[2019-09-09] MEDS: SODIUM CHLORIDE 0.9% 1,000 ML IV SCH ×2 (06:30→23:00)
--- NOTE | 2019-09-09 07:30 | NUR ---
Opening Shift Note Assumed care of patient, patient asleep at this time. No S/S of distress/SOB or pain. Bed in lowest and locked position with side rails upx2 and call light in reach. Sitter at bedside, will continue to monitor for changes Q1hr and PRN.
[2019-09-09 09:00] VITALS: BP 143/55
[2019-09-09 13:00] VITALS: BP 150/53
[2019-09-09] MEDS ORDERED: HALOPERIDOL LACTATE 5 MG/ML INJ VIAL IM PRN (13:45)
--- NOTE | 2019-09-09 14:00 | NUR ---
SPOKE TO [place] WITH SOCIAL SERVICE. PER [place] THE PATIENT NEEDS COVID TEST TO BE ACCEPTED TO A SNF.
[2019-09-09] MEDS: ACETAMINOPHEN 325 MG TAB PO PRN (16:54)
--- NOTE | 2019-09-09 16:59 | NUR ---
assessment Patient is a 89 year old male who is confused. Prior to admission patient lived home with his daughter Carleen and needed assistance. Per Carleen patient uses a wheelchair and a fww for home use. Patients PCP is Dr Alcala. Carleen is patients POA. Patient has an advanced directive. I informed Carleen patient has a ss consult for possible terminal gauger placement. Per Carleen she is requesting SNF for rehab. [facility]leen is refusing [facility] at [facility]. Carleen requested [facility]. Patient does have a ss consult for SNF. MD order has been sent to [facility]. Per Tatum she has accepted patient. Bed assignment will be given once discharge is in. Waiting on discharge now. Carleen verbalized understanding and agreed to discharge plan to SNF. Addendum: 09/09/19 at 1704 by Mandi PURI Amended: Links added.
[2019-09-09 17:00] VITALS: BP 158/84
--- NOTE | 2019-09-09 19:10 | NUR ---
MELODY SWAB WALKED TO LAB BY PRIMARY RN.
--- NOTE | 2019-09-09 19:15 | NUR ---
Opening Shift Note: Assumed care of patient, awake and alert to self. No S/S of distress/SOB or pain. Bed in lowest locked position, side rails up x 2, call light within reach. Sitter at bedside for patient safety. Patient instructed on POC and to call for assist PRN, will continue to monitor for changes Q1hr and PRN.
--- NOTE | 2019-09-09 19:47 | NUR ---
IV insertion: IV access obtained, via clean sterile technique by inserting 22 gauge catheter at left forearm after 1 attempt. IV secured properly. No trauma to site. Patient tolerated well.
[2019-09-09 21:00] VITALS: BP 146/67
--- NOTE | 2019-09-10 02:48 | NUR ---
Closing note: Patient asleep in bed. No S/S of distress at this time. Sitter at bedside for patient safety. Care endorsed.
--- NOTE | 2019-09-10 02:50 | NUR ---
ASSUMED PATIENT CARE. REPORT RECEIVED. PATIENT RESTING IN BED, NO DISTRESS NOTED. SITTER AT BEDSIDE. WILL CONTINUE TO MONITOR.
[2019-09-10 05:00] VITALS: BP 139/62
[2019-09-10 07:52] LABS: BUN/Creatinine Ratio 20.5; Calcium 8.1 mg/dL (8.5-10.1); Potassium 4.9 mmol/L (3.5-5.1)
[2019-09-10 08:00] VITALS: BP 144/73
[2019-09-10 13:00] VITALS: BP 143/54
[2019-09-10] MEDS: ACETAMINOPHEN 325 MG TAB PO PRN (15:11)
[2019-09-10 17:00] VITALS: BP 127/46
[2019-09-10] MEDS: SODIUM CHLORIDE 0.9% 1,000 ML IV SCH (17:10)
--- NOTE | 2019-09-10 19:36 | NUR ---
Opening Shift Note Received report and assumed care of patient. Patient is awake and alert to self. Instructed patient on plan of care and to call for assistance as needed. Sitter at bedside. Will continue to monitor.
[2019-09-10 22:00] VITALS: BP 143/59
[2019-09-10 23:29] LABS: Urine Bacteria FEW /hpf (None Seen); Urine Blood 2+ /uL (Negative); Urine Hyaline Cast FEW /lpf (0 - 2); Urine Specific Gravity 1.017 (1.001-1.035); Urine WBC 11 /hpf (0 - 3)
[2019-09-11 05:00] VITALS: BP 147/54
[2019-09-11] MEDS: SODIUM CHLORIDE 0.9% 1,000 ML IV SCH (05:39)
--- NOTE | 2019-09-11 07:30 | NUR ---
Opening Shift Note: Report received and assumed care of patient. Pt asleep but easily arousable to verbal stimuli,No S/S of respiratory distress noted.no c/o pain. Bed in lowest locked position, side rails up x 2, call light within reach.attendant [facility] at bedside,explain to patient turning q 2 hours as needed. Will continue to monitor for changes Q 1 hour and PRN.,
[2019-09-11 08:00] VITALS: BP 141/75
--- NOTE | 2019-09-11 14:27 | NUR ---
CALLED DR. GARCIA, LEFT MESSAGE IF STILL WANTS TO HAVE ABG DONE ORDERED PER R.T. SINCE O2 SATURATION ON ROOM AIR IS 93%,AWAITING FOR CALL BACK.
[2019-09-11] MEDS: FUROSEMIDE 20 MG/2 ML VIAL IV SCH (14:32)
--- NOTE | 2019-09-11 14:43 | NUR ---
Nutrition Followup Notes Wt: 53.4 kg Pt was not fully alert with no family by bedside. per records pt for volume replacement. pt is currently on pureed diet with inadequate PO of < 50% x 4 per RN doc Est Energy needs: 6911-7234 kcals (20-23 kcal/kgBW),Est Protein needs: 49-55 gms/day (0.8-0.9 gm/kgBW).Will continue to monitor and reassess prn. LAB: BUN 23 H, GLU 120 H, CA 8.1 L, ALB 2.7 L. GI: Pt has no BM today per RN doc BS: 13 mod risk Please refer to wound assessment report for full details. PES: 1) Inadequate oral intake aeb 25% po intake over two meals r/t pt with a poor appetite 2) Altered nutrition related lab values aeb hyperkalemia, hypocalcemia, hyperchloremia, elev RFTs, low GFR, mod hypoalbuminemia r/t current medical condition Comments Will continue to monitor PO intake, skin status, pertinent labs and weight trends. Will f/u in 3-5 days. 1) Continue to closely monitor and assist pt PO intake to meet at least 75% of meals. 2) If pt appetite remains poor consider Glucerna Shake 1 ctn TID. 3) Continue current plan of care
--- NOTE | 2019-09-11 16:23 | NUR ---
DR. GARCIA CALLED,RECEIVED ORDER TO DISCHARGE PATIENT TO SNF
--- NOTE | 2019-09-11 16:25 | NUR ---
CALLED AND INFORMED [place] FROM WATER AND FIRE TECHNICIAN RE DISCHARGE ORDER TO SNF FROM DR. GARCIA
--- NOTE | 2019-09-11 16:30 | NUR ---
[facility] MACHINE PROGRAMMER CALLED RECEIVED ROOM NUMBER [id number] SERG AND ACCEPTING DOCTOR, DOCTOR OMI AND TRANSPORT FORMING YARDAGE CONTROL OPERATOR AT 1830 BY [facility].
--- NOTE | 2019-09-11 16:40 | NUR ---
CALLED AND INKFORMED DR. GARCIA INFORMATION OF TRANSFER (ROOM NUMBER AND ACCEPTING M.D. AT THE [facility])
--- NOTE | 2019-09-11 17:10 | NUR ---
DISCHARGE PHOTO TO ALL WOUNDS DONE
[2019-09-11 17:15] VITALS: BP 141/56
--- NOTE | 2019-09-11 17:25 | NUR ---
VITAL SIGNS TAKEN PATIENT HAS FEVER OF 100.9
--- NOTE | 2019-09-11 17:30 | NUR ---
INFORMED OF TEMPERATURE OF 100.9, RECEIVED ORDER TO HOLD TRANSFER,CHECK CBC,UA AND CXR,ABOVE ORDER WRITTEN AND NOTED.
--- NOTE | 2019-09-11 17:40 | NUR ---
[place] SOCIAL SERVICED NOTIFIED OF CANCELLATION OF TRANSFER DUE TO FEVER
[2019-09-11] MEDS ORDERED: FUROSEMIDE 20 MG/2 ML VIAL IV SCH (18:00)
[2019-09-11] MEDS: ACETAMINOPHEN 325 MG TAB PO PRN (18:10)
--- NOTE | 2019-09-11 18:10 | NUR ---
URINE SAMPLE OBTAIN AND SENT TO LAB FOR URINALYSIS STUDY
--- NOTE | 2019-09-11 18:10 | NUR ---
TYLENOL 650 MG PO/CRUSHED GIVEN WITH APPLE SAUCE FOR TEMP:100.9
[2019-09-11 18:55] LABS: Urine Bacteria FEW /hpf (None Seen); Urine Blood 1+ /uL (Negative); Urine Hyaline Cast FEW /lpf (0 - 2); Urine Specific Gravity 1.009 (1.001-1.035); Urine WBC 2 /hpf (0 - 3)
[2019-09-11 19:23] LABS: Basophils % (auto) 0.3 % (0.0-2.0); Lymphocytes # (auto) 0.5 10 ^3/uL (0.4-5.4); Monocytes # (auto) 1.6 10 ^3/uL (0-1.3); Neutrophils # (auto) 13.7 10 ^3/uL (1.6-8.6); Nucleated Red Blood Cells % 0.1 %
[2019-09-11 19:25] LABS: Basophils # (auto) 0 10 ^3/uL (0-0.2); Eosinophils # (auto) 0 10 ^3/uL (0-0.8); Eosinophils % (auto) 0.3 % (0.0-7.0); Hematocrit 25.4 % (41.0-53.0); Hemoglobin 7.4 g/dL (13.5-17.5); Lymphocytes % (auto) 3.4 % (10.0-50.0); Mean Corpuscular Hemoglobin 19.3 pg (28.0-32.0); Mean Corpuscular Hgb Conc. 29.2 g/dL (32.0-36.0); Mean Corpuscular Volume 66.2 fL (80.0-100.0); Monocytes % (auto) 10.1 % (0.0-12.0); Neutrophils % (auto) 85.9 % (37.0-80.0); Platelet Count (auto) 255 10^3/uL (140-450); Red Blood Cells 3.83 10^6/uL (4.5-5.90)
[2019-09-11 19:30] LABS: Red Cell Distribution Width 22.3 % (11.8-14.3)
[2019-09-11] MEDS ORDERED: levoFLOXacin 500MG 100 ML IV SCH (20:30)
[2019-09-11] MEDS ORDERED: levoFLOXacin 500MG 100 ML IV ONE (20:45)
[2019-09-11 22:00] VITALS: BP 137/55
[2019-09-11] MEDS ORDERED: POTASSIUM EFFERVESENT TAB 25 MEQ GT SCH (22:00)
[2019-09-11] MEDS: AZITHROMYCIN 500MG/ 250ML 250 ML IV SCH (22:10)
[2019-09-11] MEDS: HYDROcodone-ACET 5/325MG TAB PO PRN (22:27)
[2019-09-12] MEDS: SODIUM CHLORIDE 0.9% 1,000 ML IV SCH ×2 (01:19→18:39)
[2019-09-12 02:00] VITALS: BP 140/71
[2019-09-12 05:00] VITALS: BP 139/55
--- NOTE | 2019-09-12 07:30 | NUR ---
Opening Shift Note Assumed care of patient, resting comfortably. No S/S of distress/SOB or pain on 2 LPM via nasal cannula. Instructed on POC and to call for assist PRN, will continue to monitor for changes Q1hr and PRN. Bed in low and locked position, rails up x2, no-slip socks on. Sitter at bedside for safety.
[2019-09-12 08:00] VITALS: BP 141/52
[2019-09-12 08:35] LABS: Basophils # (auto) 0 10 ^3/uL (0-0.2); Eosinophils # (auto) 0.2 10 ^3/uL (0-0.8); Hemoglobin 7.4 g/dL (13.5-17.5); Monocytes # (auto) 1.8 10 ^3/uL (0-1.3); Neutrophils # (auto) 14.7 10 ^3/uL (1.6-8.6); Red Blood Cells 3.86 10^6/uL (4.5-5.90)
[2019-09-12 08:37] LABS: Basophils % (auto) 0.2 % (0.0-2.0); Eosinophils % (auto) 1.2 % (0.0-7.0); Hematocrit 25.6 % (41.0-53.0); Lymphocytes # (auto) 0.7 10 ^3/uL (0.4-5.4); Mean Corpuscular Hemoglobin 19.2 pg (28.0-32.0); Mean Corpuscular Hgb Conc. 28.9 g/dL (32.0-36.0); Mean Corpuscular Volume 66.3 fL (80.0-100.0); Monocytes % (auto) 10.1 % (0.0-12.0); Neutrophils % (auto) 84.5 % (37.0-80.0); Nucleated Red Blood Cells % 0.2 %; Platelet Count (auto) 278 10^3/uL (140-450); White Blood Cell 17.4 10^3/uL (4.4-10.8)
[2019-09-12 08:40] LABS: Red Cell Distribution Width 21.9 % (11.8-14.3)
[2019-09-12 08:48] LABS: BUN/Creatinine Ratio 17.1; Potassium 4.1 mmol/L (3.5-5.1)
[2019-09-12 09:00] VITALS: BP 141/52
[2019-09-12] MEDS: FUROSEMIDE 20 MG/2 ML VIAL IV SCH (09:44)
[2019-09-12] MEDS: AZITHROMYCIN 500MG/ 250ML 250 ML IV SCH (09:44)
[2019-09-12 13:00] VITALS: BP 138/50
[2019-09-12] MEDS ORDERED: levoFLOXacin 250MG 50 ML IV SCH (22:00)
--- NOTE | 2019-09-13 07:30 | NUR ---
Opening Shift Note Assumed care of patient, awake and alert. Patient can state name only. Respirations are even and unlabored. On 2L O2 nasal cannula. No S/S of distress/SOB or pain. Patient has a bartlett catheter with urine collection bag hung below bladder. No kinks noted in tubing, yellow urine draining freely to gravity. attendant lodging facilities is at bedside. Bed is low, locked with 2x side rails up. Call light is within reach. Instructed on POC and to call for assist PRN, will continue to monitor for changes Q1hr and PRN.
[2019-09-13 09:00] VITALS: BP 144/65
[2019-09-13] MEDS: AZITHROMYCIN 500MG/ 250ML 250 ML IV SCH (09:29)
[2019-09-13] MEDS: FUROSEMIDE 20 MG/2 ML VIAL IV SCH (09:29)
[2019-09-13] MEDS: SODIUM CHLORIDE 0.9% 1,000 ML IV SCH (10:39)
--- NOTE | 2019-09-13 12:06 | NUR ---
re-assessment Per Bonnie WILLOUGHBY patient is ready for discharge to SNF. Per Tatum at [facility] patient will go to room 214a and Dr Juarez is the accepting MD. Rosalba will transport patient. Waiting secondary connector armature back with XIN. Call report to [phone] Addendum: 09/13/19 at 1208 by Mandi PURI Amended: Links added.
--- NOTE | 2019-09-13 12:19 | NUR ---
re-assessment Per Tatum Navarrete will transport patient to [facility] at 530pm today post discharge. Bonnie WILLOUGHBY and Carleen daughter has been notified. Addendum: 09/13/19 at 1223 by Mandi Bravo SS Amended: Links added.
[2019-09-13 13:00] VITALS: BP 108/65
--- NOTE | 2019-09-13 13:30 | NUR ---
Called report to [facility] Called [facility] and spoke with Daniel WILLOUGHBY. All questions answered.
--- NOTE | 2019-09-13 13:38 | NUR ---
Called family Called and spoke with family member Carleen after password verified. Carleen is in agreement with patient being sent to [facility]. She is aware of transport time 1745 by [employer]. Provided Carleen with address and phone number to [facility] in [place], [place]. All questions answered at this time.
[2019-09-13 13:49] VITALS: BP 144/65
--- NOTE | 2019-09-13 15:14 | NUR ---
Wound care/ photos Wound care done as per MD order. Photos of wounds also taken per DC protocol. Patient tolerated well.
[2019-09-13] MEDS: HYDROcodone-ACET 5/325MG TAB PO PRN (15:31)
[2019-09-13 16:52] VITALS: BP 137/52
--- NOTE | 2019-09-13 18:16 | NUR ---
Rosalba at nurses station Transporting patient to [facility]. Patient is not in any acute distress. No SOB/pain at time of departure. All belongings are with patient. Contacted daughter Carleen to inform her. All questions answered.
== END 2019-09-13 18:19 | DRG 637 ==
LOC: ER 14:14 → EDBD 14:14 → OVERFLOW 14:15 → WEST WING 09-08 07:53
PROVIDERS: ADMIT Hospitalist; ATTEND Internal Medicine Cardiovascular Disease
DX: E11.649 Type 2 diabetes mellitus with hypoglycemia without coma (principal); I50.21 Acute systolic (congestive) heart failure; E44.0 Moderate protein-calorie malnutrition; N17.9 Acute kidney failure, unspecified; I11.0 Hypertensive heart disease with heart failure; E87.5 Hyperkalemia; G30.9 Alzheimer's disease, unspecified; R62.7 Adult failure to thrive; R63.0 Anorexia; F02.80 Dementia in other diseases classified elsewhere, unspecified severity, without behavioral disturbance, psychotic disturbance, mood disturbance, and anxiety; R29.6 Repeated falls; E11.9 Type 2 diabetes mellitus without complications; E78.5 Hyperlipidemia, unspecified; Z80.9 Family history of malignant neoplasm, unspecified; Z82.49 Family history of ischemic heart disease and other diseases of the circulatory system; Z83.3 Family history of diabetes mellitus; Z86.73 Personal history of transient ischemic attack (TIA), and cerebral infarction without residual deficits; I25.10 Atherosclerotic heart disease of native coronary artery without angina pectoris; M62.262 Nontraumatic ischemic infarction of muscle, left lower leg; F32.9 Major depressive disorder, single episode, unspecified; Z88.1 Allergy status to other antibiotic agents; Z91.040 Latex allergy status; Z91.013 Allergy to seafood; Z20.828 Contact with and (suspected) exposure to other viral communicable diseases; Z68.21 Body mass index [BMI] 21.0-21.9, adult
CPT/HCPCS: 36415; 36600; 70450; 71045; 71046; 80048; 80053; 80061; 81001; 82805; 83735; 83880; 84443; 85007; 85025; 85027; 93005; G0378; J1956